=== PATIENT | male | born 1955 | race Caucasian/White ===

== ENCOUNTER 2016-09-10 11:26 | Inpatient (IN) | payer OTHER, MEDICARE ==
[~2016-09-10] VITALS: Ht 180.3 cm; Wt 101.1 kg
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
--- NOTE | ~2016-09-10 | OR ---
PATIENT'S NAME: GINA GIFFORD [facility] AGE: 61 Y [address] ROOM: [address] [address] LOCATION: [facility] ADMIT DATE: 09/10/2016 OR/Procedure Report DISCHARGE DATE: FAMILY PHYSICIAN: Omid Villeda ATTENDING PHYSICIAN: Winston Contreras SURGEON: Winston Contreras MD CHIEF ENGINEER'S HELPER: DATE OF PROCEDURE: 09/15/2016 PREOPERATIVE DIAGNOSES: 1. Central cord syndrome. 2. Cervical spinal cord stenosis at C2 to C7 with myelopathy. POSTOPERATIVE DIAGNOSES: 1. Central cord syndrome. 2. Cervical spinal cord stenosis at C2 to C7 with myelopathy. OPERATIONS PROPOSED AND PERFORMED: 1. Cervical laminectomy at C2, C3, C4, C5, C6, and C7. 2. Application of Sol head clamp. 3. Fluoroscopy with interpretation. DESCRIPTION OF PROCEDURE: Under general anesthesia, the patient was positioned supine in bed. Next, the Sol head clamp was then applied to the head. After its application, the patient was then log-rolled onto the operating table, and the Sol head clamp was then connected to its attachment to the bed. Next, the neck as well as the suboccipital region were shaved, prepped, and draped in the usual fashion. A midline linear incision was carried out, extending from suboccipital region along the midline all the way down to T1. The fascia was incised along the midline, and the paraspinal muscles were reflected from the lamina of C2, C3, C4, C5, C6, and C7. Weitlaner self-retaining retractors were then used for retraction. Next, the C-arm was brought in and I put a clamp in the space between the C2 and C3 spinous processes, and did a fluoroscopy to confirm that the clamp was between C2 and C3. This area was marked. The C-arm was then removed. The spinous processes of C2, C3, C4, C5, C6, and C7 were removed. Next, using the drill, we drilled off and significantly thinned out the lamina of these segments of the C2, C3, C4, C5, C6, and C7. After the lamina had been significantly thinned out, we then used the 2-mm Kerrison rongeurs to complete the laminectomy. The canal was quite tight and the yellow ligament was very thick. After we had completed the laminectomy, the cord appeared to open adequately and appeared to be adequately decompressed. PATIENT'S NAME: GINA GIFFORD [facility] AGE: 61 Y [address] ROOM: [id number] [place] [id number] LOCATION: [facility] ADMIT DATE: 09/10/2016 OR/Procedure Report DISCHARGE DATE: FAMILY PHYSICIAN: Physician, New ATTENDING PHYSICIAN: Winston Contreras The wound was thoroughly irrigated with bacitracin irrigation. Powdered Gelfoam soaked in thrombin was then used for hemostasis. The powdered Gelfoam was eventually washed out, a Hemovac was placed in the epidural space, and brought out through a separate stab wound. WOUND CLOSURE: The incision was then closed in layers at first the muscle, then the fascia, subcutaneous tissue, and finally the skin. POSTOPERATIVE CONDITION: The patient tolerated the procedure well, and was taken back to the Intensive Care Unit. PLAN: In light of the fact that he was having some respiratory problems preoperatively, we elected to go ahead and keep him intubated till tomorrow. MD NORMA LO/jose g /[id number] d: 09/15/16 2306 t: 09/18/16 1409, OPERATIVE SUMMARY
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
--- NOTE | ~2016-09-10 | PN ---
PATIENT'S NAME: GINA GIFFORD [facility] AGE: 61 Y [address] ROOM: [facility] [place], [place] [address] LOCATION: [facility] ADMIT DATE: 09/10/2016 Progress Notes DISCHARGE DATE: FAMILY PHYSICIAN: Physician, New ATTENDING PHYSICIAN: Winston Contreras DATE OF SERVICE: 09/13/2016 This is a patient with a probable central cord syndrome and has right rib fractures. He has been made n.p.o. because of swallowing difficulty. He is on BiPAP because of decreased pulse oximetry. On Thursday, Neurosurgery is going to perform a laminectomy for the central cord syndrome. His laboratory values show reasonable electrolytes and white count is normal. Hematocrit 31.7. He is generally doing stable and for neurosurgical treatment on Thursday. MD KUMAR GIBBS/jose g /[id number] d: 09/13/16 1250 t: 09/19/16 1818, PROGRESS NOTES
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
--- NOTE | ~2016-09-10 | PN ---
PATIENT'S NAME: GINA GIFFORD [facility] AGE: 61 Y [address] ROOM: [address] [address] LOCATION: [facility] ADMIT DATE: 09/10/2016 Progress Notes DISCHARGE DATE: FAMILY PHYSICIAN: Physician, New ATTENDING PHYSICIAN: Winston Contreras DATE OF SERVICE: 09/20/2016 This patient had central cord syndrome, some rib fractures. He had a laminectomy posteriorly C2-C7. He has a TLSO brace for burst fracture in his lumbar spine. He is on soft diet. He has a Beck catheter. He is on Levaquin. He is planned on being transferred to [facility]. He is doing reasonably well with some improvement. He had laboratory today, which showed electrolytes were reasonable, glucose tad high at 155. BUN and creatinine satisfactory. Albumin is 2.4. His white count is 11.6, which is a tad elevated; his hematocrit is 32.9; and platelet count 256. He is generally doing well. Physical examination is stable. Plan is tentatively for transfer on Thursday to [facility]. MD KUMAR GIBBS/jose g /[id number] d: 09/20/16 0955 t: 10/03/16 0648, PROGRESS NOTES
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
--- NOTE | ~2016-09-10 | PN ---
PATIENT'S NAME: GINA GIFFORD [facility] AGE: 61 Y [address] ROOM: [address] [address] LOCATION: [facility] ADMIT DATE: 09/10/2016 Progress Notes DISCHARGE DATE: FAMILY PHYSICIAN: Physician, New ATTENDING PHYSICIAN: Winston Contreras DATE OF SERVICE: 09/19/2016 This patient who had central cord syndrome and had a C2-C7 posterior laminectomy and a brace for his burst fracture lumbar is doing well. He is still on Levaquin. He still has a Beck catheter. He is on soft diet which he is tolerating well. Plan is for him to be transferred to the PCU either tonight or tomorrow. I will check his laboratories tomorrow on his progress. MD KUMAR GIBBS/jose g /[id number] d: 09/19/161937 t: 10/03/16 0646, PROGRESS NOTES
--- NOTE | ~2016-09-10 | PN ---
PATIENT'S NAME: GINA GIFFORD [facility] AGE: 61 Y [address] ROOM: [facility] [place], [place] [address] LOCATION: [facility] ADMIT DATE: 09/10/2016 Progress Notes DISCHARGE DATE: FAMILY PHYSICIAN: Physician, New ATTENDING PHYSICIAN: Winston Contreras DATE OF SERVICE: 09/14/2016 HISTORY OF PRESENT ILLNESS: This is a patient with a central cord syndrome who is having laminectomy by Neurosurgery tomorrow. He has been made n.p.o. because of swallowing difficulties. He is appropriately in the [place] collar. His laboratory values show reasonable H and H, and his chemistries are satisfactory. Plan is for operative intervention by Neurosurgery for his central cord system tomorrow. Of note is the fact that he is also on BiPAP as he desaturated earlier. Remainder of the review of systems is surgically noncontributory. PHYSICAL EXAMINATION: VITAL SIGNS: Afebrile. Vital signs stable. GENERAL: He looks reasonably comfortable. No significant changes in exam. PLAN: For operative intervention tomorrow. MD KUMAR GIBBS/jose g /[id number] d: 09/14/16 1124 t: 09/19/16 1821, PROGRESS NOTES
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
[2016-09-10 11:57] LABS: BASOPHIL # 0.1 K/uL (0.0-0.2); BASOPHIL % 0.5 %; EOSINOPHIL # 0.5 K/uL (0.0-0.5); EOSINOPHIL % 4.5 %; IMMATURE GRANULOCYTE # 0.1 K/uL (0.0-0.3); IMMATURE GRANULOCYTE % 0.8 %; LYMPHOCYTE # 1.9 K/uL (0.8-4.0); LYMPHOCYTE % 15.6 %; MCH 30.8 pg (27.0-34.0); MCHC 34.1 gm/dL (32.0-36.5); MCV 90.1 fl (83.0-98.0); MONOCYTE # 0.9 K/uL (0.0-1.0); MONOCYTE % 7.1 %; MPV 10.5 fl (9.4-12.4); NEUTROPHIL # (ANC) 8.5 K/uL (1.4-9.0); NEUTROPHIL % 71.5 %; NRBC % 0 /100WBC (0-0.00); PLATELET COUNT 265 K/uL (150-450); RBC 4.55 M/uL (3.50-5.50); RDW-CV 12.1 % (11.9-14.6)
[2016-09-10 12:03] LABS: PROTIME 10.2 SECONDS (9.6-11.1); PTT 26 SECONDS (25-32)
[2016-09-10 12:13] LABS: ALBUMIN 3.3 gm/dL (3.5-5.0); ALK PHOS 115 IU/L (33-138); ALT 46 IU/L (12-78); ANION GAP 11.7 (10.0-19.0); AST 51 IU/L (10-40); BLOOD UREA NITROGEN 16 mg/dL (6-24); CALCIUM 8.3 mg/dL (8.5-10.5); CHLORIDE 105 mMol/L (96-110); CO2 28 mMol/L (22-32); CPK 691 IU/L (35-332); CREATININE 1.1 mg/dL (0.6-1.3); ESTIMATED GFR (MDRD EQUATION) > 60; POTASSIUM 3.7 mMol/L (3.7-5.1); SODIUM 141 mMol/L (135-145); TOTAL BILIRUBIN 0.5 mg/dL (0.0-1.5); TOTAL PROTEIN 7.2 g/dL (6.0-8.4)
[2016-09-10] MEDS ORDERED: COREG 3.1253.125 MG PO (20:18)
[2016-09-10] MEDS ORDERED: PLAVIX75 MG PO (20:18)
[2016-09-10] MEDS ORDERED: ATORVASTATIN CA80 MG PO (20:19)
[2016-09-10] MEDS ORDERED: COLESTID1 GM PO (20:19)
[2016-09-10] MEDS ORDERED: COZAAR25 MG PO (20:19)
[2016-09-10] MEDS ORDERED: ASPIRIN LO-DOSE81 MG PO (20:19)
[2016-09-10] MEDS ORDERED: GEMFIBROZIL600 MG PO (20:20)
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
[2016-09-11 04:30] LABS: BASOPHIL % 0.1 %; EOSINOPHIL % 0.4 %; HEMATOCRIT 32.8 % (37.0-53.0); HEMOGLOBIN 11.3 g/dL (11.0-16.0); IMMATURE GRANULOCYTE % 0.3 %; LYMPHOCYTE # 1.2 K/uL (0.8-4.0); LYMPHOCYTE % 12.7 %; MCH 31.2 pg (27.0-34.0); MCHC 34.5 gm/dL (32.0-36.5); MCV 90.6 fl (83.0-98.0); MONOCYTE # 1.1 K/uL (0.0-1.0); MONOCYTE % 11.2 %; MPV 10.7 fl (9.4-12.4); NEUTROPHIL # (ANC) 7.3 K/uL (1.4-9.0); NEUTROPHIL % 75.3 %; NRBC % 0 /100WBC (0-0.00); PLATELET COUNT 240 K/uL (150-450); RBC 3.62 M/uL (3.50-5.50); RDW-CV 12.3 % (11.9-14.6); WBC 9.7 K/uL (4.0-11.0)
[2016-09-11 04:43] LABS: ALBUMIN 2.8 gm/dL (3.5-5.0); BLOOD UREA NITROGEN 14 mg/dL (6-24); CALCIUM 7.6 mg/dL (8.5-10.5); CHLORIDE 107 mMol/L (96-110); CO2 24 mMol/L (22-32); ESTIMATED GFR (MDRD EQUATION) > 60; SODIUM 140 mMol/L (135-145)
--- NOTE | 2016-09-11 04:50 | NUR ---
Significant Event: The Patient is Alert and Oriented x3. Denies Numbness, but has Tingling to bilateral finger tips. Moves all extremities spontaneously and to command. Bedrest. Upper extremities are very weak, Lower extremities have moderate strength. VSS. On 1L oxygen per NC. Pain to his back Gave Morphine 2mg at 2015 and 2 Percocet at 215. Multiple abrasions/bruises to body. Left ear and Right Forehead lacerations Sutured. TLSO and [place] J collar on at all times. Beck draining yellow urine. PIV to the Left Forearm saline Locked. PIV to the Right wrist infusing NS at 125ml/hr. NPO accept sips of water. Follow up: Neuro and vitals Q2H
--- NOTE | 2016-09-11 11:24 | NUR ---
Introduced self and CM role to Fabiano, his and another family member who was at bedside. RN Nury was in giving him medication when I came to visit so I didn't talk with Fabiano, I mostly talked with his . I explained CM role to her, let her know I would continue to follow. Dr. Oakes had rounded before I entered and wrote for PT/OT to eval and treat, so I let know I would see how that goes and then I would come back by and we would talk about discharge plans/questions/DME needs at that time. She was fine with this. Left my name on his whiteboard for them to refer to down the road. Will continue to follow and assist. If he does well with therapies and no surgeries are planned, he will most likely be able to return back home when ready to dismiss.
--- NOTE | 2016-09-11 19:15 | NUR ---
Significant Event: Patient A/O x3 VS stable on 1L 02 per NC. Patient complains of tingling to fingers and toes. Upper extremities are weak. Moderate strength to bilateral lower extremities. Patient had MRI done this shift. PT/OT services provided this shift. Patient complains of pain, Percocet and Morphine given with some relief noted. Patient has [place] J collar and TLSO brace on at all times. Patient refused Repo, feels more comfortable on his back. Patient has multiple abrasion and bruises. Neosporin applied. IV to R) wrist with NS at 125ml/hr. IV to L) FA SL. Patient pleasant and cooperative with cares. supportive at bedside. Follow up:
[2016-09-12 04:58] LABS: BASOPHIL % 0.3 %; EOSINOPHIL # 0.2 K/uL (0.0-0.5); EOSINOPHIL % 1.3 %; HEMOGLOBIN 10.2 g/dL (11.0-16.0); IMMATURE GRANULOCYTE # 0.1 K/uL (0.0-0.3); IMMATURE GRANULOCYTE % 0.4 %; LYMPHOCYTE # 0.9 K/uL (0.8-4.0); LYMPHOCYTE % 7.2 %; MCH 30.6 pg (27.0-34.0); MCHC 32.9 gm/dL (32.0-36.5); MCV 93.1 fl (83.0-98.0); MONOCYTE % 8.1 %; MPV 10.4 fl (9.4-12.4); NEUTROPHIL # (ANC) 9.8 K/uL (1.4-9.0); NEUTROPHIL % 82.7 %; NRBC % 0 /100WBC (0-0.00); PLATELET COUNT 203 K/uL (150-450); RBC 3.33 M/uL (3.50-5.50); RDW-CV 12.5 % (11.9-14.6); WBC 11.9 K/uL (4.0-11.0)
[2016-09-12 05:14] LABS: ALBUMIN 2.6 gm/dL (3.5-5.0); ALK PHOS 79 IU/L (33-138); ALT 29 IU/L (12-78); ANION GAP 11.8 (10.0-19.0); AST 47 IU/L (10-40); BLOOD UREA NITROGEN 16 mg/dL (6-24); CALCIUM 7.6 mg/dL (8.5-10.5); CHLORIDE 107 mMol/L (96-110); CO2 25 mMol/L (22-32); CREATININE 0.9 mg/dL (0.6-1.3); ESTIMATED GFR (MDRD EQUATION) > 60; POTASSIUM 3.8 mMol/L (3.7-5.1); SODIUM 140 mMol/L (135-145); TOTAL BILIRUBIN 0.6 mg/dL (0.0-1.5)
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
[2016-09-13 05:15] LABS: BASOPHIL % 0.4 %; EOSINOPHIL # 0.1 K/uL (0.0-0.5); EOSINOPHIL % 0.7 %; HEMATOCRIT 31.7 % (37.0-53.0); HEMOGLOBIN 10.6 g/dL (11.0-16.0); IMMATURE GRANULOCYTE # 0.1 K/uL (0.0-0.3); IMMATURE GRANULOCYTE % 0.5 %; LYMPHOCYTE # 0.6 K/uL (0.8-4.0); LYMPHOCYTE % 6.3 %; MCH 31.2 pg (27.0-34.0); MCHC 33.4 gm/dL (32.0-36.5); MCV 93.2 fl (83.0-98.0); MONOCYTE # 0.8 K/uL (0.0-1.0); MONOCYTE % 8.6 %; MPV 10.2 fl (9.4-12.4); NEUTROPHIL # (ANC) 7.7 K/uL (1.4-9.0); NEUTROPHIL % 83.5 %; NRBC % 0 /100WBC (0-0.00); PLATELET COUNT 214 K/uL (150-450); RDW-CV 12.5 % (11.9-14.6); WBC 9.2 K/uL (4.0-11.0)
[2016-09-13 05:24] LABS: ALBUMIN 2.4 gm/dL (3.5-5.0); BLOOD UREA NITROGEN 12 mg/dL (6-24); CALCIUM 7.8 mg/dL (8.5-10.5); CHLORIDE 105 mMol/L (96-110); CO2 27 mMol/L (22-32); CREATININE 0.9 mg/dL (0.6-1.3); ESTIMATED GFR (MDRD EQUATION) > 60; PHOSPHORUS 2.1 mg/dL (2.5-4.9); SODIUM 139 mMol/L (135-145)
--- NOTE | 2016-09-13 15:49 | NUR ---
Significant Event: PT ALERT AND ORIENTED X3. PERRLA. WHISPERS. NUMBNESS/TINGLING REMAINS TO FINGERS AND TOES. GENERALIZED WEAKNESS. L)ARM REMAINS WEAKER THAN R); SLIGHT MOVEMENT NOTED. ABLE TO RAISE R)ARM ABOVE HEAD. BILATERAL LOWER EXTREMITIES HAVE SLIGHT MOVEMENT. GENERALIZED EDEMA. FEET COLD; PEDAL PULSES 1+ HAVE BEEN ALTERNATING BETWEEN BIPAP AND 6 LITERS PER NASAL CANNULA THROUGHOUT THE DAY. TOLERATING FAIR; O2 SATS HAVE BEEN IN THE LOWER TO MID-90'S. LUNG SOUNDS SLIGHTLY COARSE/DIMINISHED. PRODUCTIVE COUGH AT TIMES. DELGADO PATENT, DRAINING YELLOW URINE. HYPOACTIVE BOWEL SOUNDS X4. WAINWRIGHT J COLLAR AND TLSO TO BE WORN WHEN HEAD OF BED IS 30 DEGREES OR LESS. SCATTERED ABRASIONS/ROAD RASH. IV'S TO L)FA AND R)WRIST INTACT. IV FLUIDS INFUSING WITHOUT COMPLICATIONS. SCHEDULED IV TYLENOL HAS BEEN HELPING WITH PT'S PAIN AND HAS BEEN MUCH MORE CONTROLLED THIS SHIFT. PT REMAINS NPO. EKG, ECHO AND CHEST-XRAY DONE THIS AM. HAS BEEN AT BEDSIDE ALL SHIFT. Follow up: CONTINUE TO MONITOR; SURGERY ON THURSDAY PER .
--- NOTE | 2016-09-14 03:01 | NUR ---
Significant Event: Pt is a/o x3. Follows commands as best as he can. Gross motor movement to upper extremities only. Can wiggle toes and plantar/dorsal flex bilat feet. Slight movement to bilat hands/fingers. Very slight hand grasp to R)hand, no hand grasp to left later tonight. Pt can raise RUE indepedently. N/T to bilat toes/fingers. C/o of back/neck pain and headache. Pain medication given with relief noted. Quad coughing initiated tonight. BIPAP on at 2200. COntinues to be on, pt tolerating well. PIV x2. IV tylenol q 6h. Follow up: Surgery Thursday with .
[2016-09-14 05:16] LABS: BASOPHIL % 0.4 %; EOSINOPHIL # 0.2 K/uL (0.0-0.5); EOSINOPHIL % 3.1 %; HEMATOCRIT 28.9 % (37.0-53.0); HEMOGLOBIN 9.6 g/dL (11.0-16.0); IMMATURE GRANULOCYTE % 0.3 %; LYMPHOCYTE # 0.8 K/uL (0.8-4.0); LYMPHOCYTE % 10.9 %; MCHC 33.2 gm/dL (32.0-36.5); MCV 93.2 fl (83.0-98.0); MONOCYTE # 0.8 K/uL (0.0-1.0); MONOCYTE % 10.5 %; MPV 9.9 fl (9.4-12.4); NEUTROPHIL # (ANC) 5.6 K/uL (1.4-9.0); NEUTROPHIL % 74.8 %; NRBC % 0 /100WBC (0-0.00); PLATELET COUNT 212 K/uL (150-450); RDW-CV 12.6 % (11.9-14.6); WBC 7.4 K/uL (4.0-11.0)
[2016-09-14 05:24] LABS: PROTIME 10.8 SECONDS (9.6-11.1); PTT 29 SECONDS (25-32)
[2016-09-14 05:32] LABS: ALBUMIN 2.2 gm/dL (3.5-5.0); ALK PHOS 68 IU/L (33-138); ALT 27 IU/L (12-78); AST 38 IU/L (10-40); BLOOD UREA NITROGEN 13 mg/dL (6-24); CHLORIDE 104 mMol/L (96-110); CO2 26 mMol/L (22-32); CREATININE 0.7 mg/dL (0.6-1.3); ESTIMATED GFR (MDRD EQUATION) > 60; SODIUM 138 mMol/L (135-145); TOTAL BILIRUBIN 0.7 mg/dL (0.0-1.5)
--- NOTE | 2016-09-14 16:09 | NUR ---
Significant Event: PT ALERT AND ORIENTED X3. WHISPERS. PERRLA. NUMBNESS/TINGLING REMAIN TO BILATERAL HANDS/FEET. GROSS MOTOR MOVEMENT TO UPPER EXTREMITIES. ABLE TO MOVE R)UPPER EXTREMITY INDEPENDENTLY. ABLE TO PLANTAR/DORSIFLEX BILATERAL FEET. GENERALIZED WEAKNESS/EDEMA. 2-3 ASSIST/TURN Q2H. TACHYCARDIA WITH RATES IN THE UPPER 90'S-LOW 100'S. RESPIRATORY THERAPY HAS BEEN ALTERNATING BETWEEN BI-PAP AND NASAL CANNULA AT 6 LITERS. PT HAS BEEN TOLERATING WELL AND MAINTAINING O2 SATS. LUNG SOUNDS SLIGHTLY COARSE/DIMINISHED. DOES HAVE A STRONG COUGH. DELGADO PATENT, DRAINING YELLOW URINE. HYPOACTIVE BOWEL SOUNDS X4; LAST BM ON 09/10. TLSO BRACE AND [place] J COLLAR INTACT. SCATTERED ABRASIONS/SWELLING. IV'S TO R)WRIST AND L)FA INTACT. IV FLUIDS INFUSING WITH COMPLICATIONS. PRN ROXICODONE AND IV MORPHINE HAS HELPED WITH PAIN. HAS BEEN AT BEDSIDE ALL SHIFT. Follow up: CXR IN THE AM; SURGERY PLANNED TOMORROW ABOUT 1200 PER ; CONSENTS NEED SIGNED; PRE-OP CHECKLIST; NPO AFTER MIDNIGHT.
--- NOTE | 2016-09-15 04:20 | NUR ---
Significant Event: Oriented x3. Follows commands. Gross motor movement only. SLightest hand grasp to L)hand, even slighter with R)hand. Can slightly flex R)wrist. Equal strength to bilat lower extremeties. New neck pain at beginning of shift. "s notified. Orders received for additional pain med plus med for muscle spasms. Pt has rested well with pain medications on board. Still receiving IV tyelenol. Oxycodone given for extended relief. Pt given full bath with hairwashed/shaved. [place] j pads changed. Turtle shirt changed. Decreased bowel tones noted. Distended abd, tight, firm, pt does need to have a bm. Quad coughing. BIpap at noc. NC 6L during day. Follow up: Pt to have Laminectomy c2-c7 today with
[2016-09-15 05:11] LABS: BASOPHIL % 0.5 %; EOSINOPHIL # 0.3 K/uL (0.0-0.5); EOSINOPHIL % 4.6 %; HEMATOCRIT 28.1 % (37.0-53.0); HEMOGLOBIN 9.3 g/dL (11.0-16.0); IMMATURE GRANULOCYTE % 0.3 %; LYMPHOCYTE # 0.8 K/uL (0.8-4.0); LYMPHOCYTE % 11.3 %; MCHC 33.1 gm/dL (32.0-36.5); MCV 93.7 fl (83.0-98.0); MONOCYTE # 0.8 K/uL (0.0-1.0); MONOCYTE % 10.8 %; NEUTROPHIL # (ANC) 5.4 K/uL (1.4-9.0); NEUTROPHIL % 72.5 %; NRBC % 0 /100WBC (0-0.00); PLATELET COUNT 246 K/uL (150-450); RDW-CV 12.6 % (11.9-14.6); WBC 7.4 K/uL (4.0-11.0)
[2016-09-15 05:34] LABS: ALBUMIN 2.3 gm/dL (3.5-5.0); ANION GAP 12.2 (10.0-19.0); BLOOD UREA NITROGEN 17 mg/dL (6-24); CALCIUM 8.3 mg/dL (8.5-10.5); CHLORIDE 103 mMol/L (96-110); CO2 27 mMol/L (22-32); CREATININE 0.7 mg/dL (0.6-1.3); ESTIMATED GFR (MDRD EQUATION) > 60; PHOSPHORUS 2.9 mg/dL (2.5-4.9); POTASSIUM 4.2 mMol/L (3.7-5.1); SODIUM 138 mMol/L (135-145)
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
--- NOTE | 2016-09-15 18:43 | NUR ---
Significant Event:Patient sedated on ventilator post OR and does not respond much to stimulation, Morphine INSPECTOR PRINTED CIRCUIT BOARDS started, pt repositioned and TLSO repositioned with tank shirt underneath, remains in SR, plan to rest on vent overnight and try to extubate in AM, OG inserted and to LIS, saleh to DD with adequate UOP, at bedside and given frequent updates throughout shift Follow up:Plan to extubate in AM and monitor closely for pain
[2016-09-15 20:16] LABS: BICARBONATE 27.9 mmol/L (18.0-23.0); PCO2 43 mmHg (35-45); PO2 66 mmHg (80-90)
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
[2016-09-16 05:40] LABS: BICARBONATE 29.2 mmol/L (18.0-23.0); PCO2 44 mmHg (35-45); PO2 103 mmHg (80-90)
--- NOTE | 2016-09-16 05:49 | NUR ---
Significant Event: Pt continues to be sedated on vent. Withdraws x4 extremities. Does not follow commands at this time. When sedation is lightened at times pt will nod in response to questions. Vent setting changes at beginning of shift. Increase in Morphine DEBURRING TECHNICIAN, added continuous dose. Tate gtt initiated in the night for decreased MAP's. Fi02 weaned to 50% to keep sats>90%. Pt is febrile. BLood cultures x2 sent. Urine culture sent. Sputum culture sent. Pt started on Zosyn and Tobramycin. TLSO intact. Bath given. Follow up: Cont to wean vent.
[2016-09-16 05:51] LABS: ALBUMIN 2.1 gm/dL (3.5-5.0); ANION GAP 12.4 (10.0-19.0); CALCIUM 7.6 mg/dL (8.5-10.5); CHLORIDE 104 mMol/L (96-110); CO2 27 mMol/L (22-32); PHOSPHORUS 3.5 mg/dL (2.5-4.9); POTASSIUM 4.4 mMol/L (3.7-5.1); SODIUM 139 mMol/L (135-145)
[2016-09-16 05:54] LABS: BLOOD UREA NITROGEN 32 mg/dL (6-24); CREATININE 1.1 mg/dL (0.6-1.3); ESTIMATED GFR (MDRD EQUATION) > 60
[2016-09-16 05:58] LABS: BASOPHIL % 0.1 %; HEMATOCRIT 25.9 % (37.0-53.0); HEMOGLOBIN 8.3 g/dL (11.0-16.0); IMMATURE GRANULOCYTE % 0.4 %; LYMPHOCYTE # 0.8 K/uL (0.8-4.0); LYMPHOCYTE % 6.9 %; MCH 30.5 pg (27.0-34.0); MCV 95.2 fl (83.0-98.0); MONOCYTE # 0.9 K/uL (0.0-1.0); MPV 10.3 fl (9.4-12.4); NEUTROPHIL # (ANC) 9.6 K/uL (1.4-9.0); NEUTROPHIL % 84.6 %; NRBC % 0 /100WBC (0-0.00); RBC 2.72 M/uL (3.50-5.50); RDW-CV 12.8 % (11.9-14.6); WBC 11.4 K/uL (4.0-11.0)
[2016-09-16 06:01] LABS: PLATELET COUNT 305 K/uL (150-450)
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
--- NOTE | 2016-09-16 12:21 | NUR ---
Social visit with Fabiano's today in his room. He remains on the vent at this time. SW operations intern Suellen present. Let her know that I was still following along with his case and would help with eventual dismissal plans. Talked with her about his next step. We talked about [facility] and [facility]. She doesn't know which one she might want. "It kind of depends on what his insurance will cover and things like that. I would like for him to be in the [place] area if he could be but I am not forsure on all of that right now. My kids will be here later today so we will talk about things and then once he is off the vent we can talk to him to and see what he wants to do." I let her know that this was fine. I told her I would stop by tomorrow or and we could talk more at that time. She was in agreement with this plan. Will continue to follow and assist.
[2016-09-16 16:46] LABS: BICARBONATE 30.6 mmol/L (18.0-23.0); PCO2 43 mmHg (35-45); PO2 92 mmHg (80-90)
[2016-09-16 17:01] LABS: ALBUMIN 2.4 gm/dL (3.5-5.0); ANION GAP 10.7 (10.0-19.0); BLOOD UREA NITROGEN 34 mg/dL (6-24); CALCIUM 7.8 mg/dL (8.5-10.5); CHLORIDE 107 mMol/L (96-110); CO2 28 mMol/L (22-32); ESTIMATED GFR (MDRD EQUATION) > 60; POTASSIUM 3.7 mMol/L (3.7-5.1); SODIUM 142 mMol/L (135-145)
--- NOTE | 2016-09-16 17:46 | NUR ---
Significant Event:NEURO: When propofol is paused for neuro assessment, patient opens eyes to voice, nods appropriately, moves right arm at elbow to command. Withdraws in all four extremities. CARDIO: Tate-synephrine at 0.2 mcg/kg/min to keep MAP > 65. Max temp 100.3. Mild generalized edema. RESP: AC TV 600 FiO2 40%, PEEP 10, RATE 16. Patient RR 16/min.
--- NOTE | 2016-09-17 03:57 | NUR ---
Significant Event: When sedation off for assessments, patient nods appropriately. Follows commands. Unable to wiggle fingers, but does make gross movements of arms. VIKTORIA. Propofol at 25 mcg/kg/min. Tate at 0.3 mcg/kg/min. Temp max 100.6 30% Fi02 A/C. Clear/dim to slightly coarse. Acitve bowel sounds. OG infusing TF at 20 ml/hr. Max residual 35 ml. No BM. Beck drained 2490 ml urine. TLSO on. HOB <30 degrees. Follow up: Wean tate
[2016-09-17 04:27] LABS: PCO2 45 mmHg (35-45); PO2 74 mmHg (80-90)
[2016-09-17 04:42] LABS: ALBUMIN 2.5 gm/dL (3.5-5.0); ANION GAP 12.4 (10.0-19.0); BLOOD UREA NITROGEN 38 mg/dL (6-24); CALCIUM 8.2 mg/dL (8.5-10.5); CHLORIDE 108 mMol/L (96-110); CO2 27 mMol/L (22-32); CREATININE 1.1 mg/dL (0.6-1.3); ESTIMATED GFR (MDRD EQUATION) > 60; PHOSPHORUS 2.5 mg/dL (2.5-4.9); POTASSIUM 3.4 mMol/L (3.7-5.1); SODIUM 144 mMol/L (135-145)
[2016-09-17 04:49] LABS: HEMATOCRIT 25.4 % (37.0-53.0); HEMOGLOBIN 8.1 g/dL (11.0-16.0); MCH 30.8 pg (27.0-34.0); MCHC 31.9 gm/dL (32.0-36.5); MCV 96.6 fl (83.0-98.0); PLATELET COUNT 249 K/uL (150-450); RBC 2.63 M/uL (3.50-5.50); RDW-CV 13.3 % (11.9-14.6); WBC 8.8 K/uL (4.0-11.0)
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
[2016-09-17 05:33] LABS: ABSOLUTE NEUTROPHIL CT (ANC) 6.2 K/uL (1.4-9.0); BANDED NEUTROPHIL # 0.6 K/uL (0.0-0.1); BANDED NEUTROPHILS % 7 %; LYMPHOCYTE # 1.5 K/uL (0.8-4.0); LYMPHOCYTE % 17 %; MONOCYTE # 0.7 K/uL (0.0-1.0); SEGMENTED NEUTROPHIL # 5.5 K/uL (1.4-9.0); SEGMENTED NEUTROPHIL % 63 %
[2016-09-17 16:03] LABS: ALBUMIN 2.5 gm/dL (3.5-5.0); ANION GAP 14.5 (10.0-19.0); BLOOD UREA NITROGEN 39 mg/dL (6-24); CALCIUM 8.2 mg/dL (8.5-10.5); CHLORIDE 110 mMol/L (96-110); CO2 26 mMol/L (22-32); ESTIMATED GFR (MDRD EQUATION) > 60; POTASSIUM 3.5 mMol/L (3.7-5.1)
[2016-09-17 16:05] LABS: SODIUM 147 mMol/L (135-145)
[2016-09-17 16:07] LABS: HEMATOCRIT 27.6 % (37.0-53.0); HEMOGLOBIN 9.1 g/dL (11.0-16.0)
--- NOTE | 2016-09-17 17:32 | NUR ---
Pt continued on ventilator support at start of shift, 30% Fio2, Peep 10. Around 1315 placed Pt in CPAP 5/PS 10, later weaned PS to 5. Pt tolerated well. Weaning parameters met NIF -30, VC 2250, RSBI 56, good strong cough from Pt. Extubated at 1715 to 6L NC and will continue with Duoneb/Ezpap.
[2016-09-18 05:10] LABS: BICARBONATE 30.6 mmol/L (18.0-23.0); PCO2 45 mmHg (35-45); PO2 78 mmHg (80-90)
[2016-09-18 05:14] LABS: ALBUMIN 2.5 gm/dL (3.5-5.0); ANION GAP 13.2 (10.0-19.0); BLOOD UREA NITROGEN 33 mg/dL (6-24); CALCIUM 8.3 mg/dL (8.5-10.5); CHLORIDE 111 mMol/L (96-110); CO2 25 mMol/L (22-32); CREATININE 0.8 mg/dL (0.6-1.3); ESTIMATED GFR (MDRD EQUATION) > 60; POTASSIUM 4.2 mMol/L (3.7-5.1); SODIUM 145 mMol/L (135-145)
[2016-09-18 05:17] LABS: BASOPHIL # 0.1 K/uL (0.0-0.2); BASOPHIL % 0.7 %; EOSINOPHIL # 0.4 K/uL (0.0-0.5); HEMATOCRIT 29.2 % (37.0-53.0); HEMOGLOBIN 9.6 g/dL (11.0-16.0); IMMATURE GRANULOCYTE # 0.1 K/uL (0.0-0.3); IMMATURE GRANULOCYTE % 0.6 %; LYMPHOCYTE # 1.2 K/uL (0.8-4.0); LYMPHOCYTE % 12.9 %; MCH 31.3 pg (27.0-34.0); MCHC 32.9 gm/dL (32.0-36.5); MCV 95.1 fl (83.0-98.0); MONOCYTE # 0.8 K/uL (0.0-1.0); MONOCYTE % 9.3 %; MPV 10.1 fl (9.4-12.4); NEUTROPHIL # (ANC) 6.4 K/uL (1.4-9.0); NEUTROPHIL % 72.5 %; NRBC % 0 /100WBC (0-0.00); PLATELET COUNT 249 K/uL (150-450); RBC 3.07 M/uL (3.50-5.50); RDW-CV 14.3 % (11.9-14.6); WBC 8.9 K/uL (4.0-11.0)
--- NOTE | 2016-09-18 05:21 | NUR ---
Significant Event: Pt is alert and oriented x3. Pupils are equal and reactive. Gross movements in the upper extremities and some slight movements of the fingers on the L) hand. Able to wiggle toes bilaterally and makes some weak efforts to lift legs. States that he does have some numbness and tingling to his hands. Dressing from surgical site on posterior neck. TLSO brace on. ART line in the L) wrist. PIV in place, Subclavian in place with CVP monitoring. Beck cath in place with good urine output. No BM this shift. Follow up: swallowing study today.
--- NOTE | 2016-09-18 09:55 | NUR ---
A - NUTRITION F/U. GLU 108, BUN/FUNERAL CAR DRIVER 33/0.8, ALB 2.5. WT TODAY 227# (TLSO ON). DAILY WTS FLUCTUATING 1-6#. PT W/ 1-2+ EDEMA TO HANDS/FEET. PT IS NPO. ST TO EVAL SWALLOW TODAY. D - AT RISK W/ LIKELY DIFFICULTY SWALLOWING R/T C2-C7 FUSION AEB NPO STATUS. I - GOAL: FEEDING VIA APPROPRIATE ROUTE. M/E - 1) IF ALTERNATE FEEDING ROUTE NEEDED REC OSMOLITE 1.5 TO RUN AT GOAL RAET OF 65 ML/HR = 2340 KCALS, 98 GM PROTEIN, 1238 ML FREEH H20. 2) IF ORAL DIET INITIATED, WILL ADD APPROPRIATE SUPPLEMENTS. 3) F/U IN 2-4 DAYS.
--- NOTE | 2016-09-18 13:49 | NUR ---
Social visit with Fabiano and today. They would like to try to get him to [facility]. prefers that he go to the [facility] as that is where her son lives so she could stay with him wiht Fabiano was there. I let her know I would check into that campus option and let her know. She is open to [facility] as well. She did question if [facility] would be an options. I talked with Kita, [facility] Liaison, who tells me that they are not in network with [employer] insurance, but if family was willing to pay out of network prices, she would be happy to take a look at his referral. Let know this, she staes they are not interested in that so she would like to proceed with [facility]. I phoned/faxed over a referral to Devorah at [facility], they are working on insurance pre-auth and seeing if they can accept Fabiano when he is ready to dismiss from [facility]. Devorah states they will review the information and work with his insurance to see if they can accept him when ready. Will continue to follow and assist.
--- NOTE | 2016-09-18 18:19 | NUR ---
Significant Event: Patient alert/oriented x3. Gross upper and lower movement only. Right side weaker than the left side. UP to chair x2 this shift with mechanical lift. Bath completed, hair wash, and shave completed. NSR with no ectopy observed, VSS. Afebrile. [place] warm/and dry. Oxygen weaned down to 2L NC to keeep sats >90%. Strong productive cough. Removed saleh at 1300 but had to straight cath at 1730 because patient had the feeling he had to go but couldn't void. Straight cath for 700ml. MS MIDDLEWARE SYSTEMS ARCHITECT at 1/8min lockout. Continues on levaquin IV. Follow up:
--- NOTE | 2016-09-19 05:24 | NUR ---
Significant Event: Pt is alert and oriented x3. Gross movements in his upper extremities, some slight movements in the fingers. Able to wiggle his toes slightly. Pupils are equal and reactive. On a morphine EFFICIENCY CLERK. Beck cath reinserted this shift. No BM this shift. Subclavian and 2PIV's in place. Dressin to the back of neck clean and dry. Pt on surgical soft and honey thick liquids. Follow up: Continue to monitor
--- NOTE | 2016-09-19 08:57 | NUR ---
DIET RX ORDERED: MECHANICAL SOFT/HONEY THICK LIQUIDS. STARTED ENSURE PUDDING AT BRK AND MAGIC CUP AT LUNCH/DINNER.
--- NOTE | 2016-09-19 15:51 | NUR ---
Call from Renee at [facility] this morning wanting an update on Fabiano. Information was faxed over to her at her request. She also states that after she called his insurance no pre-auth would be needed for him to come. After she reveiwed the faxed information it was decided that we would set things up for him to transfer to them on Thursday. Renee was going to call Fabiano and his this afternoon and go over insurance items and then once she did that, get back to me on if we were a go for [facility] in [place]. Renee called me back in the afternoon, states she talked with Fabiano and his and they want to proceed. I let her know that I would send her an update on Thursday and then once she got that and was ready to accept to let me know and we would get a crew on the road to get Fabiano to them. Renee was fine with this plan. She did ask if could ride on the ambulance with him as she didn't have a care here. I let Renee know I would check with our EMS crew and then update after that. I called down to EMS, gave information to Stephy, she states they will plan on having a crew to transport him to [facility] in [place] on Thursday at 1100 pending my update with Renee early on Thursday. I asked if would be able to ride in the ambulance with him and Stephy tells me that as long as the weather is decent and the crew is fine with it she will be able to. I plan on touching base with her on Thursday once I have the go from Renee. I updated and Fabiano to this plan. Both in agreement. Let know that she could, at this point, ride in the ambulance, but to be thinking of a back up plan incase something were to change. She voiced understanding to this. Updated RN to the plan for [facility] on Thursday. Also left a sticky note on the chart for MDs to see as well. Will continue to follow and assist. Plan for [facility] on Thursday at 1100 pending update with Renee on Thursday.
--- NOTE | 2016-09-19 16:47 | NUR ---
Significant Event:Patient up in chair with use of full lift. Reposition q2h. Morphine [employer]PER[employer]ENT stopped at 1545. LS clear, O2 at 4L nc. IS to 750 ml. Abd soft w/ active bowel tones. Beck patent w/ neri urine. Temp 99.0.TLSO brace on at all times. N/T in bilateral fingers and toes this is his normal state. Able to lift elbows up part way and bend knees. Small blacken area on right wrist. Sutures removed from ear and right temporal area. Plans to [facility] on Thursday at 1100.
[2016-09-20 04:02] LABS: ALBUMIN 2.4 gm/dL (3.5-5.0); ALK PHOS 95 IU/L (33-138); ALT 49 IU/L (12-78); ANION GAP 10.5 (10.0-19.0); AST 48 IU/L (10-40); BLOOD UREA NITROGEN 25 mg/dL (6-24); CALCIUM 8.2 mg/dL (8.5-10.5); CHLORIDE 104 mMol/L (96-110); CO2 31 mMol/L (22-32); CREATININE 0.8 mg/dL (0.6-1.3); ESTIMATED GFR (MDRD EQUATION) > 60; POTASSIUM 4.5 mMol/L (3.7-5.1); SODIUM 141 mMol/L (135-145); TOTAL BILIRUBIN 0.8 mg/dL (0.0-1.5); TOTAL PROTEIN 6.5 g/dL (6.0-8.4)
[2016-09-20 04:06] LABS: BASOPHIL % 0.3 %; EOSINOPHIL # 0.2 K/uL (0.0-0.5); EOSINOPHIL % 1.4 %; HEMATOCRIT 32.9 % (37.0-53.0); HEMOGLOBIN 10.6 g/dL (11.0-16.0); IMMATURE GRANULOCYTE # 0.1 K/uL (0.0-0.3); IMMATURE GRANULOCYTE % 0.4 %; LYMPHOCYTE # 1.1 K/uL (0.8-4.0); LYMPHOCYTE % 9.2 %; MCH 30.7 pg (27.0-34.0); MCHC 32.2 gm/dL (32.0-36.5); MCV 95.4 fl (83.0-98.0); MONOCYTE # 0.9 K/uL (0.0-1.0); MONOCYTE % 7.5 %; MPV 10.6 fl (9.4-12.4); NEUTROPHIL # (ANC) 9.4 K/uL (1.4-9.0); NEUTROPHIL % 81.2 %; NRBC % 0 /100WBC (0-0.00); PLATELET COUNT 256 K/uL (150-450); RBC 3.45 M/uL (3.50-5.50); RDW-CV 13.3 % (11.9-14.6); WBC 11.6 K/uL (4.0-11.0)
[2016-09-20 04:13] LABS: INR - (THERAPEUTIC) 1.1 (0.9-1.1); PROTIME 11.5 SECONDS (9.6-11.1); PTT 27 SECONDS (25-32)
--- NOTE | 2016-09-20 04:17 | NUR ---
Significant Event:A&Ox3. No fine motor movements. Able to lift elbows and knees. Can wiggle toes and fingers slightly. Up full lift. TLSO brace to be on at all times. Edema glove to R) has. Generalized edema. On tele SR. VSS. On 4L of O2 sats in mid 90s. Encourage IS. Take [place] and IV morphine for pain during the night. Beck good urine output. Last BM 09/15. [place] drs to back c/d/i. Road rash neosporin applied as scheduled. NS at 80 an hr. L) subclavian quad lumen flushes great with good blood return. Able to take pills whole with thickened water. Follow up: [facility] Thursday
--- NOTE | 2016-09-20 16:17 | NUR ---
Significant Event: Patient is A&O x3. Follows commands. No fine motor movement but can move all extremities. Wiggles fingers on the L) side more than on the right. Can lift arms and legs but very weak. NWB all extremities. Does state that he has N/T to his hands and feet but that it is chronic. VSS. Is on 3L O2 by NC. Complains of pain to his back and generalized. Last gave 2 [place] @ 1434 with relief noted. Last BM 09/15 and gave suppository today. Abdomen was distended and now much softer. Had a small BM but passed a lot of gas. Multiple skin issues. Full lift with 2 assist. TLSO on at all times. Dressing to back and back of neck C/D/I. Beck catheter draining yellow urine. Central line needs D/C'd but will wait until he goes back to bed. IV to R) AC SL. Q6H accuchecks. Mechanical soft diet with honey thick liquids & feeds him. Turn Q2H. Bilateral foot drop boots. Cooperative with cares. Follow up: Possibly going to [facility] Thursday.
--- NOTE | 2016-09-21 04:16 | NUR ---
Significant Event: The Patient is Alert and Oriented x3. Chronic Numbness and Tingling to hands and feet. Up with Full Lift, Q2H turns. Moves upper extremities with difficulty, but moves everything spontaneously and to command. No fine motor movements in bilateral upper extremities. PIV to the Left Forearm infusing NS at 80ml/hr. VSS, On 2L oxygen per NC. Accu checks q6h. Pain to his Neck and Right shoulder gave Morphine last at 2331, and [place] last at 0242. Beck draining yellow urine. Multiple areas of abrasions and bruising. Surgical Incision to posterior neck Covered by a dressing that is C/D/I. Generalized weakness and edema throughout. Takes pills whole with water. He is mechanical soft diet, 1:1 feeder, with honey thick liquids. Left Subclavian Central line Discontinued, dressing applied. Abdomen slightly distended and firm, the patient is passing gas. Follow up:
--- NOTE | 2016-09-21 16:15 | NUR ---
Significant Event: Patient is A&O x3. Follows commands. No fine motor movements but is able to lift all extremities and wiggle fingers & toes. More movement today than yesterday. NWB all estremities. N/T to hands and feet but it is chronic. Pupils equal & brisk. VSS and was able to wean to room air. TLSO on @ all times. Beck draining yellow urine. Complains of pain to the back of his head, neck, & upper back but most of all in his abdomen. Abdomen is distended but much more soft than yesterday. Suppository given @ 0638 and did have a moderate liquid BM. Gave 2 [place] last at 1545. Passing flatus. Multiple abrasions all over. Full lift, turn Q2H. 1:1 feeder but assists. Dressing to back of the neck. Honey think liquids and takes pills whole with it. IV L) FA infusing. Cooperative with cares. Follow up: [facility] on Thursday?.
--- NOTE | 2016-09-22 04:18 | NUR ---
Significant Event: The Patient is Alert and Oriented x3. Chronic N/T to hands and feet. Moves with difficulty. No fine motor movements. Moves spontaneously and to command. Up with Full Lift. Q2H turns. VSS. On room air. TLSO brace on at all times. Beck draining yellow urine- in for retension. Dressing to his posterior neck is C/D/I. Scattered bruises and abrasions to is body. Pain to his neck, lower back and right shoulder Gave Morphine last at 0226, and [place] last at 0403. He felt Nauseated around 0400, gave Zofran IV, also gave a Dulcolax suppository. Accu checks Q6H. PIV to the Left Forearm infusing NS at 100ml/hr. Abdomen slightly distended and firm, paitent is passing gas. 1:1 feeder. Honey thickened liquids, mechanical soft diet. Takes pills whole. Follow up: [facility] to [facility] today
--- NOTE | 2016-09-22 10:46 | NUR ---
0930 Update faxed to Renee at [facility]. She reviewed the information and states they are still planning on accepting today. I phoned down to EMS, let Lalita know that we were planning on sending out at 1100 today. She states they will have a crew ready to go at that time. I faxed dismissal orders to [facility] prior to him leaving. Talked with Fabiano and and both are still in agreement to go to [facility] today. 1030 Call from Lalita down in EMS, she tells me that the crew had to go out on a call so they will be up here around 1130 now. I updated nursing and family to this, all are fine with the change in time. Also let Renee know that they would be leaving at 1130 no instead of the original 1100 like planned. RN to RN number was given to MERRY Garcia to call in report. Per Renee, no MD to MD report is needed. Will continue to follow and assist.
--- NOTE | 2016-09-22 11:49 | NUR ---
Patient is A&Ox3. Cooperative with cares. Pt has been drowsiness this afternoon. Chronic numbness and tingling to hands and feet-no complaints this shift of altered sensations. No fine motor movements. Moves spontaneously and to commands-wiggles hands and toes. Up with full lift. VSS-on room air. Afebrile. TLSO brace on at all times. Pt has urinary retention-saleh in place and draining yellow urine. Dressing to his posterior neck C/D/I. Scattered bruises and abrasions to body. Pain to back-[place] given last at 1133. Abdomen firm and slightly distended -continue to monitor for BM, pt is passing gas. PIV to the left forearm infusing NS at 100ml/hr. Pt is 1:1 feeder; fraizer water protocol; nectar thickened liquids and mechanical soft diet. Takes pills whole. Pt is cooperative with cares and pts was present at bedside throughout shift.
== END 2016-09-22 12:30 | DRG 518 ==
LOC: GACC 11:26 → GICU 17:26 → GNTU 17:26 → GICU 09-12 05:17 → GPCU 09-19 17:53 → GNTU 09-22 06:25
PROVIDERS: Anesthesiology; Emergency Medicine; Physician Assistant; Surgery; ADMIT Neurological Surgery
PROC: 00NW0ZZ Release Cervical Spinal Cord, Open Approach (ICD-10-PCS; principal; 2016-09-15)
DX: S32.001A Stable burst fracture of unspecified lumbar vertebra, initial encounter for closed fracture (principal); I21.4 Non-ST elevation (NSTEMI) myocardial infarction; J96.01 Acute respiratory failure with hypoxia; S14.122A Central cord syndrome at C2 level of cervical spinal cord, initial encounter; K66.1 Hemoperitoneum; J15.4 Pneumonia due to other streptococci; I48.91 Unspecified atrial fibrillation; D62 Acute posthemorrhagic anemia; J98.11 Atelectasis; S22.31XA Fracture of one rib, right side, initial encounter for closed fracture; E11.9 Type 2 diabetes mellitus without complications; E78.00 Pure hypercholesterolemia, unspecified; E78.5 Hyperlipidemia, unspecified; I10 Essential (primary) hypertension; I25.10 Atherosclerotic heart disease of native coronary artery without angina pectoris; M48.02 Spinal stenosis, cervical region; V43.53XA Car driver injured in collision with pick-up truck in traffic accident, initial encounter; Y92.410 Unspecified street and highway as the place of occurrence of the external cause
CPT/HCPCS: G0390; G0480; J0131; J0690; J1100; J1170; J1200; J1956; J2270; J2370; J2405; J2543; J2704; J3010; J3260; J3360; J3480; J7030; J7040; J7050; L0172; P9016; P9047; Q9967

== ENCOUNTER → 2016-09-10 | Outpatient (CLI) | payer SELFPAY ==
[~2016-09-10] MED LIST: ASPIRIN LO-DOSE81 MG PO; ATORVASTATIN CA80 MG PO; COLESTID1 GM PO; COREG 3.1253.125 MG PO; COZAAR25 MG PO; GEMFIBROZIL600 MG PO; PLAVIX75 MG PO
== END | disposition disaster alternative care site (69) ==
LOC: GAMB 11:00
DX: S39.92XA Unspecified injury of lower back, initial encounter (principal); S01.91XA Laceration without foreign body of unspecified part of head, initial encounter; S30.810A Abrasion of lower back and pelvis, initial encounter; M54.5 Low back pain; R29.898 Other symptoms and signs involving the musculoskeletal system; X58.XXXA Exposure to other specified factors, initial encounter

== ENCOUNTER → 2016-09-22 | Outpatient (CLI) | payer OTHER, MEDICARE | END | disposition disaster alternative care site (69) | LOC: GAMB 11:20 | DX: S29.9XXA Unspecified injury of thorax, initial encounter (principal); R07.81 Pleurodynia; Z79.82 Long term (current) use of aspirin; Z79.899 Other long term (current) drug therapy | CPT/HCPCS: A0422; A0425; A0426; J3010 ==